=== PATIENT | female | born 1990 | race Caucasian/White ===

== ENCOUNTER → 2017-06-07 | Outpatient (CLI) | payer MEDICAID ==
[2016-05-02 13:45] VITALS: BP 84/47
[2017-06-07 14:17] LABS: BASOPHILS % (AUTO) 0.6 % (0.2-1.0); EOSINOPHILS # (AUTO) 0.2 x10^3/uL (0.0-0.2); EOSINOPHILS % (AUTO) 3.4 % (0.9-2.9); HEMATOCRIT 38.8 % (36.0-47.0); HEMOGLOBIN 12.9 g/dL (12.0-16.0); LYMPHOCYTES % (AUTO) 31.5 % (21.0-51.0); MEAN CORPUSCULAR HGB CONC 33.3 g/dL (33.0-35.0); MEAN CORPUSCULAR VOLUME 78.1 fL (80.0-100.0); MEAN PLATELET VOLUME 7.2 fL (7.4-11.0); MONOCYTES # (AUTO) 0.2 x10^3/uL (0.3-0.8); MONOCYTES % (AUTO) 3.8 % (0.0-13.0); NEUTROPHILS # (AUTO) 3.9 x10^3/uL (2.2-4.8); NEUTROPHILS % (AUTO) 60.7 % (42.0-75.0); PLATELET COUNT 272 X10^3/uL (150.0-450.0); RED BLOOD COUNT 4.98 X10^6/uL (3.5-5.4); RED CELL DISTRIBUTION WIDTH 19.8 % (11.6-16.5); WHITE BLOOD COUNT 6.4 X10^3/uL (3.6-10.0)
[2017-06-07 14:37] LABS: ALANINE AMINOTRANSFERASE 31 Units/L (12-78); ALBUMIN 3.5 g/dL (3.4-5.0); ALKALINE PHOSPHATASE 124 Units/L (46-116); ASPARTATE AMINO TRANSFERASE 23 Units/L (15-37); BLOOD UREA NITROGEN 7 mg/dL (7-18); CALCIUM 8.7 mg/dL (8.5-10.1); CARBON DIOXIDE 29.2 mmol/L (21-32); CHLORIDE 103 mmol/L (98-107); COR NA(FOR HYPERGLY) 142 mmol/L (136-145); CREATININE 0.95 mg/dL (0.55-1.02); SODIUM 140 mmol/L (136-145); TOTAL PROTEIN 7.1 g/dL (6.4-8.2); URIC ACID 5.8 mg/dL (2.6-6.0); eGFR BLACK RACES > 60 (>60); eGFR NON BLACK RACES > 60 (>60)
[2017-06-07 14:56] LABS: ERYTHROCYTE SEDIMENTATION RATE 9 MM/HOUR (0-20)
[2017-06-07 15:11] LABS: RHEUMATOID FACTOR NEGATIVE (NEGATIVE)
--- NOTE | 2017-06-09 13:19 | RAD ---
Three views of the right foot Indication: Right foot pain, possible gout Findings: There is periosteal new bone formation surrounding the 2nd toe metatarsal diaphysis with tr ansversely oriented area of lucency highly suspicious for a subacute stress fracture. Correlation wit h clinical findings is recommended. Remaining right foot demonstrates no evidence of fracture, disloc ation or soft tissue swelling. Lisfranc joint alignment is maintained. Impression: Suspected subacute stress fracture of the 2nd toe metatarsal diaphysis with evidence of h ealing and absence of complete or displaced fracture. Clinical correlation is needed. Reported By:
[2017-06-11 06:22] LABS: ANTI-NUCLEAR ANTIBODY TEST None Detected (None Detected)
== END ==
LOC: LAB 13:56
PROVIDERS: ATTEND Nurse Practitioner Family
DX: M06.4 Inflammatory polyarthropathy (principal); M79.671 Pain in right foot
CPT/HCPCS: 36415; 73630; 80053; 84550; 85025; 85652; 86140; 86200; 86308; 86430

== ENCOUNTER → 2017-07-04 | Outpatient (CLI) | payer MEDICAID ==
[2016-05-02 13:45] VITALS: BP 84/47
--- NOTE | 2017-07-04 16:38 | RAD ---
HISTORY: Right foot fracture Study: Right foot: Three views Comparison: 06/07/2017 Findings: There is more abundant periosteal reaction around the proximal shaft of the 2nd metatarsal fracture a t this time. Slight bony resorption of cortex of proximal shaft of the 2nd metatarsal is also noted. There appears be a transverse lucency through portions of callus and wish at. This is highly suggesti ve of possibly a none healing stress fracture. Clinical correlation is recommended with the patient. This should be better solidified at this time. No other acute bony abnormalities are identified. IMPRESSION: 1. Increasing abundant callus formation and bony cortical tunneling along the fracture line through t he base of the 2nd metatarsal is noted. This may be a nonhealing stressed fracture if there has been continued stress applied to the foot. Correlation with clinical findings is recommended. It is certai nly not solidified as it should be. Reported By:
== END ==
LOC: RAD 15:49
PROVIDERS: ATTEND Orthopaedic Surgery
DX: S92.901A Unspecified fracture of right foot, initial encounter for closed fracture (principal); X58.XXXA Exposure to other specified factors, initial encounter
CPT/HCPCS: 73630

== ENCOUNTER → 2017-08-09 | Outpatient (CLI) | payer MEDICAID ==
[2016-05-02 13:45] VITALS: BP 84/47
--- NOTE | 2017-08-10 09:24 | MRI ---
MRI right foot without contrast Indication: Stress fracture Technique: Multisequence, multiplanar MR images of the right foot were obtained without IV contrast. Comparison: Radiograph 07/04/2017 Findings: There is a nondisplaced stress fracture of the proximal 2nd metatarsal shaft with moderate surrounding marrow and soft tissue edema. There is surrounding callus formation, compatible with suba cute chronicity. Remaining marrow signal is normal. No additional fracture or malalignment is identif ied. Joint spaces of the foot, including the Lisfranc joint are within normal limits. Apart from apoorva a surrounding the 2nd metatarsal shaft, the intrinsic muscles of the foot are within normal limits. T he visualized flexor and extensor tendons of the foot and ankle are unremarkable as well. Impression: Healing, nondisplaced stress fracture of the proximal 2nd metatarsal shaft. Reported By:
== END ==
LOC: RAD 13:52
PROVIDERS: ATTEND Orthopaedic Surgery
DX: M84.374K Stress fracture, right foot, subsequent encounter for fracture with nonunion (principal); X58.XXXD Exposure to other specified factors, subsequent encounter
CPT/HCPCS: 73721

== ENCOUNTER 2017-08-30 23:44 | Emergency (ER) | payer MEDICAID ==
[2017-08-30 23:58] VITALS: BP 129/61; BMI 30.9
--- NOTE | 2017-08-31 00:06 | DR.GENAD ---
HPI - PCP Primary Care Physician: pau - Complaint/Symptoms Chief Complaint Doctors Comments: Patient states that she has a stress fracture of the right foot. She has been seen by Jose and suppose to schedule her for surgery. Review of x ray dated 07/04/17: Increasing abundant callus formation and bony cortical tunneling along the fracture line through the base of the 2nd matatarsal is noted. This may be a nonhealing stressed fracture if there has been continued stress applied to the foot. Chief Complaint:: pt states" I've been in the boot for 2 months i was in bed trying to go to sleep but i am in to much pain" - Source History Provided: Patient - Mode of Arrival Mode of Arrival: Ambulatory - Timing Onset of Chief Complaint: 06/27/17 PMH - PMH Past Medical History: Yes Past Medical History: Anxiety, Depression, Kidney Stones, Schizophrenia Past Surgical History: Yes Surgical History: Appendectomy - Family History History of Family Medical Conditions: Yes Family Medical History: Diabetes Mellitus, Hypertension - Social History Does any household member use tobacco: No Alcohol Use: None Do you use any recreational Drugs:: No Lives With: Family Lives Where: Home - infectious screening In the last 2 months have you had wt loss of >10#?: NO Have you had fever, night sweats or hemotysis?: No Have you traveled outside the country in the last 6 months?: No Isolation: Standard ROS - Review of Systems Eyes: No Symptoms Reported ENTM: No Symptoms Reported Respiratoy: No Symptoms Reported Cardiovascular: No Symptoms Reported Gastrointestinal/Abdominal: No Symptoms Reported Genitourinary: No Symptoms Reported Neurological: No Symptoms Reported Musculoskeletal: Foot (right foot pain) Integumentary: No Symptoms Reported Hematologic/Lymphatic: No Symptoms Reported Endocrine: No Symptoms Reported Psychiatric: No Symptoms Reported All Other Systems: Reviewed and Negative PE - Vital Signs Vitals: Temperature 98.2 F Pulse Rate 110 Respiratory Rate 18 Blood Pressure 129/61 O2 Sat by Pulse Oximetry 98 - General Limitations: No Limitations General Appearance: Alert, In No Apparent Distress - Head Head Exam: Normal Inspection, Atraumatic - Eyes Eye exam: Normal Appearance, PERRL, EOMI - ENT ENT Exam: Normal Exam External Ear Exam: Normal External Inspection TM/Canal Exam: Bilateral Normal Nose Exam: Normal Nose Exam Mouth Exam: Normal Inspection Throat Exam: Normal Inspection - Neck Neck Exam: Normal Inspection, Full ROM - Chest Chest Inspection: Normal Inspection - Respiratory Respiratory Exam: Normal Lung Sounds Bilat Respiratory Exam: Bilateral Clear to Auscultation - Cardiovascular Cardiovascular Exam: Regular Rate, Normal Rhythm - Abdominal Exam Abdominal Exam: Normal Inspection Abdominal Tenderness: negative: RUQ, RLQ, LUQ, LLQ, Epigastrium, Suprapubic, Diffuse, Mild, Moderate, Severe, Other - Extremities Extremities Exam: Normal Inspection, Other (patient left prior to examining foot.) - Back Back Exam: Normal Inspection - Neurologic Neurological Exam: Alert, Oriented X3, CN II-XII Intact - Psychiatric Psychiatric Exam: Normal Affect - Skin Skin Exam: Warm, Dry, Intact - Diagnosis Discharge Problem: Fracture of metatarsal of right foot, closed Qualifiers: Encounter type: subsequent encounter Metatarsal bone: second Fracture alignment : nondisplaced Fracture healing: with delayed healing Qualified Code(s): S92.324G - Nondisplaced fracture of second metatarsal bone, right foot, subsequent encounter for fracture with delayed healing - Discharge Plan Condition: Stable - Follow ups/Referrals Follow ups/Referrals: GISSELLE MOORE [Primary Care Provider] - 3 days - Instructions
== END 2017-08-31 00:15 | disposition home or self-care (01) ==
LOC: ER 23:44
DX: S92.324G Nondisplaced fracture of second metatarsal bone, right foot, subsequent encounter for fracture with delayed healing (principal); Y33.XXXA Other specified events, undetermined intent, initial encounter; Y92.89 Other specified places as the place of occurrence of the external cause
CPT/HCPCS: 99281; 99282